=== PATIENT | male | born 1930 | race Caucasian/White ===

== ENCOUNTER 2017-06-19 12:34 | Inpatient (IN) | payer MEDICARE ==
[2017-06-19] MEDS ORDERED: 0.9 % SODIUM CHLORIDE 10 ML DISP.SYRIN. IV (14:00)
[2017-06-19 14:44] LABS: ANION GAP 6 (6-14); BLOOD UREA NITROGEN 17 mg/dL (8-26); CALCIUM 10.3 mg/dL (8.5-10.1); CARBON DIOXIDE 33 mmol/L (21-32); CHLORIDE 103 mmol/L (98-107); CREATININE 0.8 mg/dL (0.7-1.3); GFR 91.4; GLUCOSE 137 mg/dL (70-99); SODIUM 142 mmol/L (136-145)
[2017-06-19 14:48] LABS: ALBUMIN 3.6 g/dL (3.4-5.0); ALK PHOS 130 U/L (46-116); ALT (SGPT) 19 U/L (16-63); AST (SGOT) 20 U/L (15-37); DIRECT BILIRUBIN 0.2 mg/dL (0.0-0.2); LIPASE 59 U/L (73-393); TOTAL BILIRUBIN 0.9 mg/dL (0.2-1.0); TOTAL PROTEIN 7.6 g/dL (6.4-8.2)
[2017-06-19 14:48] LABS: TROPONINI < 0.017 ng/mL (0.000-0.055)
[2017-06-19 14:53] LABS: NT-PRO BNP 597 pg/mL (0-449)
[2017-06-19 14:53] LABS: CKMB INDEX 2.2 % (0-4); CKMB MASS 1.7 ng/mL (0.0-3.6); CREATINE KINASE 79 U/L (39-308)
[2017-06-19 14:55] LABS: THYROID STIM HORMONE (TSH) 1.012 uIU/mL (0.358-3.74)
[2017-06-19 15:21] LABS: BILIRUBIN,URINE SMALL (NEG); CLARITY,URINE CLOUDY; COLOR,URINE YELLOW; GLUCOSE,URINE NEGATIVE (NEG); NITRITE,URINE NEGATIVE (NEG); PROTEIN,URINE NEGATIVE (NEG-TRACE)
[2017-06-19 15:33] LABS: AMORPHOUS SEDIMENT,UR PRESENT /HPF; BACTERIA,URINE 0 /HPF (0-FEW); GRANULAR CASTS,URINE OCCASIONAL /HPF; HYALINE CASTS, URINE OCCASIONAL /HPF; SQUAMOUS EPITHELIAL CELL,UR OCC /LPF
[2017-06-19] MEDS ORDERED: ACETAMINOPHEN 325 MG TABLET. PO (16:45)
[2017-06-19] MEDS ORDERED: ONDANSETRON PF 4 MG/2 ML VIAL. IV (16:45)
[2017-06-19] MEDS ORDERED: MORPHINE SULFATE 2 MG/ML DISP.SYRIN. IV (16:45)
[2017-06-20 07:20] LABS: ADD MAN DIFF? NO
[2017-06-20 07:48] LABS: BASO # 0.1 x10^3/uL (0.0-0.2); BASO % 1 % (0-3); EOS # 0.3 x10^3/uL (0.0-0.7); EOS % 3 % (0-3); HEMATOCRIT 36.1 % (39.0-53.0); HEMOGLOBIN 12.4 g/dL (13.0-17.5); LYMPH # 1.4 x10^3/uL (1.0-4.8); LYMPH % 17 % (24-48); MEAN CORPUSCULAR HEMOGLOBIN 32 pg (25-35); MEAN CORPUSCULAR HGB CONC 35 g/dL (31-37); MEAN CORPUSCULAR VOLUME 94 fL (79-100); MONO # 0.6 x10^3/uL (0.0-1.1); MONO % 7 % (0-9); NEUT # 6.1 x10^3uL (1.8-7.7); NEUT % 72 % (31-73); PLATELET COUNT 187 x10^3/uL (140-400); RED BLOOD COUNT 3.86 x10^6/uL (4.30-5.70); WHITE BLOOD COUNT 8.4 x10^3/uL (4.0-11.0)
[2017-06-20 08:00] LABS: ANION GAP 7 (6-14); BLOOD UREA NITROGEN 12 mg/dL (8-26); CALCIUM 9.4 mg/dL (8.5-10.1); CARBON DIOXIDE 32 mmol/L (21-32); CHLORIDE 105 mmol/L (98-107); CREATININE 0.8 mg/dL (0.7-1.3); GFR 91.4; GLUCOSE 134 mg/dL (70-99); SODIUM 144 mmol/L (136-145)
[2017-06-20] MEDS ORDERED: ONDANSETRON PF 4 MG/2 ML VIAL. IV (09:00)
[2017-06-20] MEDS: ASCORBIC ACID 500 MG TABLET PO (09:38)
[2017-06-20] MEDS: CHOLECALCIFEROL (VITAMIN D3) 1,000 UNIT TABLET PO (09:38)
[2017-06-20] MEDS: VITAMIN B COMPLEX TABLET. PO (09:38)
[2017-06-20] MEDS: PANTOPRAZOLE 40 MG TABLET.DR. PO (09:38)
[2017-06-20 12:32] LABS: INR 1.3 (0.8-1.1); PROTHROMBIN TIME PATIENT 15.1 SEC (11.7-14.0)
[2017-06-20 13:29] LABS: ADD MAN DIFF? NO
[2017-06-20 13:34] LABS: BASO % 1 % (0-3); EOS # 0.2 x10^3/uL (0.0-0.7); EOS % 3 % (0-3); HEMATOCRIT 31.9 % (39.0-53.0); HEMOGLOBIN 10.8 g/dL (13.0-17.5); LYMPH % 19 % (24-48); MEAN CORPUSCULAR HEMOGLOBIN 32 pg (25-35); MEAN CORPUSCULAR HGB CONC 34 g/dL (31-37); MEAN CORPUSCULAR VOLUME 94 fL (79-100); MONO # 0.5 x10^3/uL (0.0-1.1); MONO % 9 % (0-9); NEUT # 3.6 x10^3uL (1.8-7.7); NEUT % 69 % (31-73); PLATELET COUNT 161 x10^3/uL (140-400); RED CELL DISTRIBUTION WIDTH 14.2 % (11.5-14.5); WHITE BLOOD COUNT 5.2 x10^3/uL (4.0-11.0)
[2017-06-20] MEDS: LIDOCAINE (700MG/PATCH) PATCH. TD (15:10)
[2017-06-20] MEDS: IV 1/2 NORMAL SALINE 1,000 ML IV (15:10)
[2017-06-21] MEDS: PANTOPRAZOLE 40 MG TABLET.DR. PO (07:20)
[2017-06-21] MEDS: VITAMIN B COMPLEX TABLET. PO (09:47)
[2017-06-21] MEDS: LIDOCAINE (700MG/PATCH) PATCH. TD (09:48)
[2017-06-21] MEDS: ASCORBIC ACID 500 MG TABLET PO (09:48)
[2017-06-21] MEDS: CHOLECALCIFEROL (VITAMIN D3) 1,000 UNIT TABLET PO (09:48)
[2017-06-21] MEDS ORDERED: ACETAMINOPHEN 325 MG TABLET. PO (10:45)
[2017-06-21] MEDS: ACETAMINOPHEN 325 MG TABLET. PO (11:26)
[2017-06-21 16:25] LABS: POC GLUCOSE 114 mg/dL (70-99)
[2017-06-22] MEDS: VITAMIN B COMPLEX TABLET. PO (09:33)
[2017-06-22] MEDS: PANTOPRAZOLE 40 MG TABLET.DR. PO (09:33)
[2017-06-22] MEDS: ASCORBIC ACID 500 MG TABLET PO (09:33)
[2017-06-22] MEDS: LIDOCAINE (700MG/PATCH) PATCH. TD (09:33)
[2017-06-22] MEDS: CHOLECALCIFEROL (VITAMIN D3) 1,000 UNIT TABLET PO (09:33)
[2017-06-23] MEDS: CHOLECALCIFEROL (VITAMIN D3) 1,000 UNIT TABLET PO (09:53)
[2017-06-23] MEDS: LIDOCAINE (700MG/PATCH) PATCH. TD (09:53)
[2017-06-23] MEDS: ASCORBIC ACID 500 MG TABLET PO (09:53)
[2017-06-23] MEDS: VITAMIN B COMPLEX TABLET. PO (09:53)
[2017-06-23] MEDS: PANTOPRAZOLE 40 MG TABLET.DR. PO (09:53)
[2017-06-23] MEDS ORDERED: POLYETHYLENE GLYCOL 3350 17 GM PACKET. PO (16:15)
[2017-06-24] MEDS: CHOLECALCIFEROL (VITAMIN D3) 1,000 UNIT TABLET PO (09:02)
[2017-06-24] MEDS: VITAMIN B COMPLEX TABLET. PO (09:02)
[2017-06-24] MEDS: ASCORBIC ACID 500 MG TABLET PO (09:02)
[2017-06-24] MEDS: PANTOPRAZOLE 40 MG TABLET.DR. PO (09:02)
[2017-06-24] MEDS: LIDOCAINE (700MG/PATCH) PATCH. TD (09:03)
[2017-06-25] MEDS: PANTOPRAZOLE 40 MG TABLET.DR. PO (07:30)
[2017-06-25] MEDS: CHOLECALCIFEROL (VITAMIN D3) 1,000 UNIT TABLET PO (09:00)
[2017-06-25] MEDS: VITAMIN B COMPLEX TABLET. PO (09:00)
[2017-06-25] MEDS: ASCORBIC ACID 500 MG TABLET PO (09:00)
[2017-06-25] MEDS: LIDOCAINE (700MG/PATCH) PATCH. TD (09:32)
[2017-06-26] MEDS: LIDOCAINE (700MG/PATCH) PATCH. TD (09:00)
[2017-06-26] MEDS: ASCORBIC ACID 500 MG TABLET PO (09:40)
[2017-06-26] MEDS: VITAMIN B COMPLEX TABLET. PO (09:40)
[2017-06-26] MEDS: PANTOPRAZOLE 40 MG TABLET.DR. PO (09:41)
[2017-06-26] MEDS: CHOLECALCIFEROL (VITAMIN D3) 1,000 UNIT TABLET PO (09:41)
== END 2017-06-26 15:55 | DRG 543 ==
LOC: ER 12:34 → 4 NORTH 16:04
DX: M48.56XA Collapsed vertebra, not elsewhere classified, lumbar region, initial encounter for fracture (principal); Z68.1 Body mass index [BMI] 19.9 or less, adult; G30.9 Alzheimer's disease, unspecified; F02.80 Dementia in other diseases classified elsewhere, unspecified severity, without behavioral disturbance, psychotic disturbance, mood disturbance, and anxiety; W18.39XA Other fall on same level, initial encounter; H91.90 Unspecified hearing loss, unspecified ear; K21.9 Gastro-esophageal reflux disease without esophagitis; K40.90 Unilateral inguinal hernia, without obstruction or gangrene, not specified as recurrent; M19.90 Unspecified osteoarthritis, unspecified site; M85.80 Other specified disorders of bone density and structure, unspecified site; Z66 Do not resuscitate; Z86.73 Personal history of transient ischemic attack (TIA), and cerebral infarction without residual deficits; Y93.89 Activity, other specified; Y92.098 Other place in other non-institutional residence as the place of occurrence of the external cause; Y99.8 Other external cause status
CPT/HCPCS: 36415; 70450; 71045; 72125; 72148; 72192; 73502; 73600; 80048; 80076; 81001; 82306; 82553; 82962; 83690; 83735; 83880; 84443; 84484; 85007; 85025; 85610; 87086; 93005; 97110-GP; 97116-GP; 97162-GP; 97166-GO; 97530-GP; 97535-GO; 99285; 99285-25; P9612